=== PATIENT | male | born 1955 | race Caucasian/White ===

== ENCOUNTER 2025-04-05 14:35 | Emergency (ER) | payer MEDICARE, BC ==
[~2025-04-05] VITALS: Ht 165.1 cm; Wt 95.3 kg
[~2025-04-05 14:35] MED LIST: BENICAR20 MG PO; CIPRO500 MG PO; LEVOTHYROXINE88 MCG PO; SIMVASTATIN10 MG PO; XANAX0.5 MG PO; ZOLOFT50 MG PO
[2025-04-05] MEDS ORDERED: SODIUM CHLORIDE 0.9% 1000ML 1,000 ML IV STA (15:25)
[2025-04-05 16:00] VITALS: PULSE 57; RESP 18; TEMP 98.3; O2SAT 95
[2025-04-05] MEDS: ASPIRIN 81 MG CHEW TAB PO ONE (16:30)
[2025-04-05] MEDS ORDERED: DOXYCYCLINE HY100 MG PO (17:00)
== END 2025-04-05 17:30 | disposition home or self-care (01) ==
LOC: ER 15:27
DX: M79.661 Pain in right lower leg (principal); I80.01 Phlebitis and thrombophlebitis of superficial vessels of right lower extremity; I10 Essential (primary) hypertension; E78.5 Hyperlipidemia, unspecified; E03.9 Hypothyroidism, unspecified; F41.9 Anxiety disorder, unspecified
CPT/HCPCS: 93971; 99283

== ENCOUNTER 2025-05-04 02:57 | Emergency (ER) | payer MEDICARE, BC ==
[~2025-05-04] VITALS: Ht 165.1 cm; Wt 96.2 kg
[2025-05-04 02:57] VITALS: TEMP 99
[~2025-05-04 02:57] MED LIST changes: +DOXYCYCLINE HY100 MG PO
[2025-05-04] MEDS: BENZONATATE 100 MG CAP PO STA (03:43)
[2025-05-04] MEDS: METHYLPREDNISOLONE SOD SUCC 125 MG/2ML VIAL IM ONE (03:44)
[2025-05-04 03:45] VITALS: PULSE 69; RESP 13
[2025-05-04] MEDS: METHYLPREDNISOLONE SOD SUCC 125 MG/2ML VIAL IV ONE (03:57)
[2025-05-04 03:58] VITALS: PULSE 79; RESP 20; O2SAT 99
[2025-05-04] MEDS: ALBUTEROL/IPRATROPIUM 3 ML NEB NEB ONE (04:00)
[2025-05-04 04:36] VITALS: BP 132/67; PULSE 82; RESP 14; TEMP 97.8; O2SAT 98
[2025-05-04] MEDS ORDERED: BENZONATATE100 MG PO (04:39)
[2025-05-04] MEDS ORDERED: CEFUROXIME500 MG PO (04:39)
[2025-05-04] MEDS ORDERED: PREDNISONE50 MG PO (04:39)
== END 2025-05-04 04:50 | disposition home or self-care (01) ==
LOC: ER 03:30
DX: R06.02 Shortness of breath (principal); J44.1 Chronic obstructive pulmonary disease with (acute) exacerbation; I10 Essential (primary) hypertension; E03.9 Hypothyroidism, unspecified; E78.5 Hyperlipidemia, unspecified; F41.9 Anxiety disorder, unspecified; Z86.718 Personal history of other venous thrombosis and embolism
CPT/HCPCS: 71046; 93005; 94640; 94799; 99284; J2919